=== PATIENT | male | born 1955 | race Caucasian/White ===

== ENCOUNTER 2021-04-13 06:17 | Day surgery (SDC) | payer OTHER ==
[~2021-04-13] VITALS: Ht 180.3 cm; Wt 70.3 kg
--- NOTE | ~2021-04-13 | O ---
[facility] [place] [address] OPERATIVE REPORT Name: YIFAN BOOKER Room #: 150-2 [facility] M.R.#: [id number] Admission: 04/13/21 Attend Phys: Fredy Chapin MD Discharge: Date of : 59 Report #: [id number] THIS REPORT FOR: cc: Adams Laura MD, Douglas MD Joseph,Fredy Mandujano MD ~ DATE OF SERVICE: 04/13/2021 PREOPERATIVE DIAGNOSES: End-stage renal disease, malfunctioning peritoneal dialysis catheter. POSTOPERATIVE DIAGNOSES: End-stage renal disease, malpositioned peritoneal dialysis catheter. OPERATIVE PROCEDURE: Diagnostic laparoscopy and repositioning of the peritoneal dialysis catheter, lysis of adhesions. SURGEON: Fredy Chapin MD INDICATION FOR PROCEDURE: The patient is a 65-year-old male, who has end-stage renal disease, currently on hemodialysis, had a peritoneal dialysis catheter placed a few weeks ago; however, this has not been functioning well. KUB that was done showed a catheter that is in the left side of the abdomen. The patient was advised a diagnostic laparoscopy and repositioning. The patient showed understanding and agreed to proceed. PROCEDURE IN DETAIL: After explaining to the patient in detail and informed consent was obtained, the patient was identified in the preoperative holding area. The patient was transferred to the operating room and was placed in supine position. Sequential compression devices were placed for DVT prophylaxis. Preoperative antibiotics were given. After induction of anesthesia, the abdomen was prepped and draped in a sterile fashion. Through a left upper quadrant 1 cm incision and using Optiview technique, peritoneal cavity was entered and pneumoperitoneum was created. Thereafter, through a 1 cm incision in the epigastrium, I placed another 5 mm trocar. On my initial inspection, the patient was noted to have moderate adhesions in the pelvis in the right upper quadrant region from her previous open cholecystectomy. The catheter was found to be in the left side of the abdomen. I took down all the adhesions in the pelvis and in the right lower quadrant region. I then repositioned the catheter and into the pelvis. I then placed a suture in the suprapubic region using a Junito needle and a 3-0 silk suture was then used to anchor the catheter in the anterior abdominal wall, so that the catheter remains in place. I then infused about 750 mL of normal saline. Approximately, about 500 mL returned, about 250 mL remained within the abdomen. On repeat diagnostic laparoscopy, I noted that some of the fluid was within the adhesions in the right upper quadrant region. I suctioned this out. The abdomen was then [facility] [address] [place] [address] OPERATIVE REPORT Name: YIFAN BOOKER Room #: 150-2 [facility] M.R.#: [id number] Admission: 04/13/21 Attend Phys: Fredy Chapin MD Discharge: Date of : 59 Report #: [id number] deflated. The ports were removed and was closed with 4-0 Monocryl. Dermabond was applied. The patient was stable at the end of the procedure. The patient was awoken from anesthesia and was transferred to the recovery room in stable condition. Estimated blood loss was minimal. CONDITION: The patient is stable. FLUIDS GIVEN: Per anesthesia notes. SPECIMEN SENT: None. COMPLICATIONS: None. ANESTHESIA: General anesthesia. By: [id number] Fredy Chapin MD /nt
[~2021-04-13 06:17] MED LIST: ALLOPURINOL 30300 M1 PO; ARMOUR THYROID60 M1 PO; FIBER500 MG PO; FUROSEMIDE 40 M40 M1 PO; METOPROLOL SUC100 MG PO; NITROGLYCERIN0.4 MG SUBLING; OXYCODONE HCL E10 MG PO; OXYCODONE HCL10 MG PO; PRAVACHOL40 MG PO; PREDNISONE 5 MG5 MG PO; PROBIOTIC1 EAC6 PO; RENAPLEX-D TAB1 EACH PO; RENVELA800 MG PO; ST. JOSEPH ASPI81 M1 PO; TACROLIMUS0.5 MG PO; TRAMADOL 50 MG50 MG PO; WARFARIN SODIUM2 MG PO; WARFARIN SODIUM3 MG PO; [UNRECOGNIZED DRUG - OTHER] PO
[2021-04-13 07:41] LABS: INR 1.09; PROTIME 11.8 Seconds (10.5-12.1)
[2021-04-13 07:42] LABS: CALCIUM 8.5 mg/dL (8.5-10.1); CREATININE 5.6 mg/dL (0.7-1.3); POTASSIUM 3.9 mmol/L (3.5-5.1)
[2021-04-13 07:49] LABS: ALBUMIN 3.6 g/dL (3.4-5.0); TOTAL BILIRUBIN 1.1 mg/dL (0.2-1.0); TOTAL PROTEIN 6.7 g/dL (6.4-8.2)
[2021-04-13 10:30] VITALS: BP 118/82
[2021-04-13 11:29] VITALS: BP 118/82
== END 2021-04-13 11:29 | disposition home or self-care (01) ==
LOC: OR 06:17 → TBA 06:17 → OR 09:20
PROVIDERS: ATTEND Surgery
DX: T85.611A Breakdown (mechanical) of intraperitoneal dialysis catheter, initial encounter (principal); I12.9 Hypertensive chronic kidney disease with stage 1 through stage 4 chronic kidney disease, or unspecified chronic kidney disease; N18.6 End stage renal disease; Z98.890 Other specified postprocedural states; Z79.899 Other long term (current) drug therapy; Z90.49 Acquired absence of other specified parts of digestive tract; Z85.828 Personal history of other malignant neoplasm of skin; Z87.891 Personal history of nicotine dependence; Z88.2 Allergy status to sulfonamides; Y83.8 Other surgical procedures as the cause of abnormal reaction of the patient, or of later complication, without mention of misadventure at the time of the procedure
CPT/HCPCS: 50010; 50101; 50411; 50555; 52265; 53307; 54118; 56462; 56524; 56525; 56527; 58574; 62110; 62900; 70005

== ENCOUNTER → 2021-06-08 | Day surgery (SDC) | payer OTHER ==
--- NOTE | ~2021-06-08 | O ---
[facility] [place] [address] OPERATIVE REPORT Name: YIFAN BOOKER Room #: REG [facility] M..#: [id number] Admission: 06/08/21 Attend Phys: Fredy Chapin MD Discharge: Date of : 59 Report #: [id number] THIS REPORT FOR: cc: Adams Laura MD, Douglas MD Joseph,Fredy Mandujano MD ~ cc: Adams Laura MD DATE OF SERVICE: 06/08/2021 PREOPERATIVE DIAGNOSIS: Failed peritoneal dialysis catheter. POSTOPERATIVE DIAGNOSIS: Failed peritoneal dialysis catheter. OPERATIVE PROCEDURE DONE: Removal of peritoneal dialysis catheter. OPERATING SURGEON: Fredy Chapin MD. PAGE TECHNICIAN: BRETT Cavanaugh. INDICATIONS FOR THE PROCEDURE: The patient is a 65-year-old male who has a history of renal failure. He has had previous abdominal surgeries and he had malfunctioning peritoneal dialysis catheter and repositioning of the catheter did not help with continued functioning of the catheter and therefore, the patient was advised removal of the same. The patient showed understanding and agreed to proceed. PROCEDURE IN DETAIL: After explaining to the patient in detail and informed consent was obtained, the patient was identified in the preoperative holding area. The patient was transferred to the operating room and was placed in supine position. Sequential compression devices were placed for DVT prophylaxis. Separate preoperative antibiotics were given. After induction of anesthesia, the abdomen was prepped and draped in a sterile fashion. The peritoneal dialysis catheter, deep and superficial cuff was identified by palpation and 2 cm incision was made over the deeper cuff. The cuff was found and was dissected off from the surrounding tissues. The tube was then divided and was removed. I then identified the superficial cuff proximally and dissected using electrocautery. This part of the catheter also was then removed. Absolute hemostasis was ensured. The thorough saline irrigation of the wound was given. The 2 cm incision was then closed with 4-0 Monocryl. Lidocaine was injected into the incision. The patient was awoken from anesthesia and was transferred to the recovery room in stable condition. ESTIMATED BLOOD LOSS: Approximately ____. CONDITION: The patient is stable. [address] [address] OPERATIVE REPORT Name: YIFAN BOOKER Room #: REG [facility] M.R.#: [id number] Admission: 06/08/21 Attend Phys: Fredy Chapin MD Discharge: Date of : 59 Report #: [id number] FLUIDS GIVEN: Per anesthesia notes. SPECIMEN SENT: None. COMPLICATIONS: None. ANESTHESIA: General anesthesia. By: [id number] Fredy Chapin MD /nt
[2021-06-08 13:04] LABS: HEMATOCRIT 39.2 % (42.0-52.0); HEMOGLOBIN 12.8 gm/dL (14.0-18.0); MCH 30.8 pg (26.0-34.0); MCHC 32.7 g/dL (28.0-37.0); MCV 94.3 fL (80.0-100.0); RBC 4.16 mil/uL (4.50-6.00); RDW 12.9 % (10.5-14.5); WBC 8.7 thou/uL (4.0-11.0)
[2021-06-08 13:23] LABS: CALCIUM 8.5 mg/dL (8.5-10.1); CREATININE 6.2 mg/dL (0.7-1.3); POTASSIUM 4.3 mmol/L (3.5-5.1)
== END | disposition home or self-care (01) ==
LOC: OR 07:33
PROVIDERS: Anesthesiology; ATTEND Surgery
DX: T85.611A Breakdown (mechanical) of intraperitoneal dialysis catheter, initial encounter (principal); N18.6 End stage renal disease; Z79.899 Other long term (current) drug therapy; Z20.822 Contact with and (suspected) exposure to COVID-19; Z88.2 Allergy status to sulfonamides; Y83.8 Other surgical procedures as the cause of abnormal reaction of the patient, or of later complication, without mention of misadventure at the time of the procedure
CPT/HCPCS: 50010; 50101; 50411; 50555; 52265; 52266; 53307; 54118; 56526; 58574; 62110; 62900; 70005